=== PATIENT | male | born 1960 | race Native Hawaiian/Other Pacific Islander ===

== ENCOUNTER 2019-11-22 17:50 | Outpatient (CLI) | payer OTHER | END 2019-11-22 17:54 | disposition short-term general hospital (02) | LOC: AMB 17:50 | DX: R07.89 Other chest pain (principal); R06.02 Shortness of breath; I48.91 Unspecified atrial fibrillation | CPT/HCPCS: A0425; A0427 ==

== ENCOUNTER 2019-11-22 17:56 | Emergency (ER) | payer OTHER ==
[~2019-11-22] VITALS: Ht 165.1 cm; Wt 47.6 kg
[2019-11-22 18:44] LABS: POTASSIUM 4.5 mmol/L (3.6-5.2); SODIUM 138 mmol/L (136-145)
[2019-11-22 18:49] LABS: PLATELET COUNT 514 K/uL (142-355)
[2019-11-22 23:40] VITALS: BP 115/75; TEMP 99
== END 2019-11-22 23:40 | disposition short-term general hospital (02) ==
LOC: ED 18:04
PROVIDERS: Family Medicine
DX: I48.91 Unspecified atrial fibrillation (principal); R79.89 Other specified abnormal findings of blood chemistry; I20.8 Other forms of angina pectoris; R06.09 Other forms of dyspnea; J90 Pleural effusion, not elsewhere classified; R91.8 Other nonspecific abnormal finding of lung field; M54.89 Other dorsalgia; G89.29 Other chronic pain; Z87.891 Personal history of nicotine dependence
CPT/HCPCS: 36415; 80053; 82550; 83880; 84484; 85027; 85379; 93005; 96365; 96366; 96372; 96375; 99285; J0696; J3490; Q9963

== ENCOUNTER 2019-11-22 23:29 | Outpatient (CLI) | payer OTHER | END 2019-11-23 00:06 | disposition short-term general hospital (02) | LOC: AMB 23:29 | DX: J90 Pleural effusion, not elsewhere classified (principal); R91.8 Other nonspecific abnormal finding of lung field; R06.09 Other forms of dyspnea; R07.89 Other chest pain; I48.91 Unspecified atrial fibrillation | CPT/HCPCS: A0425; A0427 ==